=== PATIENT | female | born 1995 | race African-American/Black ===

== ENCOUNTER 2024-01-22 13:34 | Outpatient (AMB) | payer OTHER, SELFPAY ==
--- NOTE | 2024-01-22 13:40 | MHC.OFFVIS ---
Vital Signs 01/22/24 13:41 Height 5 ft 7 in Weight 149 lb BMI 23.3 BP 110/68 Intake Visit Reasons: New patient Annual Allergies penicilin Allergy (Mild, Uncoded 01/22/24 13:43) Hives Is last menstrual period known: Yes Last menstrual period: 01/14/24 HPI HPI New patient Annual: Details: Patient for a new church secretary exam. She has never been here before she recently moved from [facility] she is now living in [place] she does not have a primary care provider yet. She has been having a vaginal odor around the time of her. And a lingering watery bad smelling discharge that lasts for a long time afterwards this has been happening since August she was sexually active in the summer she had been on control pills last year but stopped April and she was using condoms when she was sexually active she is not currently sexually active now. She had COVID last year and it affected her taste buds so she finds meat unappealing and and it tastes rotten., and she has given up sugar and caffeine. Healthy things and veggies taste good to her. She works out. [facility] Medical History (Updated 01/22/24 @ 14:28 by Cheryl Baker CNM) Depression Anxiety Social History (Updated 01/22/24 @ 13:47 by Araceli Nation [facility]) Alcohol intake: never Patient Tobacco Use Status: Never used Tobacco Female Reproductive History Menstrual Age of Menarche: 9 Duration of menses: 3-5 days Date of last menstrual period: 01/14/24 control method: none Total pregnancies: 0 History of abnormal pap smear: No (2022 neg (per Patient)) Physical Exam Vital Signs: Last Vital Signs BP 110/68 01/22/24 13:41 BMI result Body Mass Index 23.3 Const General: healthy appearing, comfortable, no acute distress, well developed and alert Nutritional Appearance: average body habitus Orientation/consciousness: patient oriented x3 Limitations: no limitations HEENT Head: Yes normocephalic Neck Neck: Yes normal visual inspection Chest Chest palpation & inspection: normal inspection of the chest Breast/axilla inspection: normal inspection of the breasts and normal inspection of the axillae Breast/axilla palpation: normal palpation of the breasts and normal palpation of the axillae Resp Effort & Inspection: normal respiratory effort GI Inspection: Yes normal to inspection, No Abdominal wall edema and No distended Palpation (GI): Soft to palpation and nontender Other: No discharge appreciated until speculum placed chocolate the liquidy foul-smelling brown liquid discharge when speculum opened up foreign body noted in posterior part of vagina appears to be a tampon grasped with ring forceps and removed along with speculum,(too large to pass through open speculum,) Vagina and cervix swabbed with scoppetes. Friable cervix noted nulliparous Pap smear taken as well as cultures for gonorrhea chlamydia trichomoniasis Angelica and bacterial vaginosis will treat with metronidazole for 7 days. General: Yes bladder normal to palpation External Female Exam: normal external appearance and normal appearance of the urethra Speculum Exam - Vagina: normal appearance of the vagina, normal palpation and normal vaginal discharge Speculum Exam - Cervix: normal appearance of the cervix, normal palpation and nontender Bimanual exam- vagina & uterus: normal bimanual exam, normal palpation, uterine size normal, bladder normal to palpation, consistency normal, normal palpation, uterine mobility normal, uterine shape normal, No Cervical tenderness present, non-tender and no cervical motion tenderness Bimanual Exam- Adnexa, other: normal adnexae, no masses, normal and No adnexal tenderness Neuro General: patient oriented x3 Office Procedures AMB Foreign Body Removal Details: Please see the exam section for the description of the discharge and tampon when it was identified as a tampon it was grasped with ring forceps and removed along with the speculum as it was too large to pass through an open speculum. Speculum was then replaced to continue the exam and obtain specimens. Foreign Body Removal Simple: [id number], simple Procedure code (CPT) selection complete Assessment & Plan Assessment & Plan (1) Encounter for screening examination for sexually transmitted disease: Code(s): Z11.3 - Encounter for screening for infections with a predominantly sexual mode of transmission Category: Medical (2) Cervical cancer screening: Code(s): Z12.4 - Encounter for screening for malignant neoplasm of cervix Category: Medical (3) Vaginal odor: Code(s): N89.8 - Other specified noninflammatory disorders of vagina Category: Medical (4) Problematic vaginal discharge: Code(s): N89.8 - Other specified noninflammatory disorders of vagina Category: Medical (5) control counseling: Code(s): Z30.09 - Encounter for other general counseling and advice on contraception Category: Medical (6) Retained tampon: Code(s): T19.2XXA - Foreign body in vulva and vagina, initial encounter; W44.8XXA - Other foreign body entering into or through a natural orifice, initial encounter Category: Medical Plan -----Discussed in this visit the following: healthy balanced diet, regular and consistent exercise, getting recommended health screens, doing the best she can for her particular health concerns, kegel exercises, pap smear screening and followup recommendations, mammography screening and SBE, normal changes in cycles in her life stage--- Tampon was removed it appeared to be large it was fairly foul-smelling chocolate brown copious discharge.. Vagina was swabbed with scoppettes as noted I am sending prescription for metronidazole for her to take counseled on bad taste of metronidazole but in this case I think it is worth treating to kill any bacteria present. Additionally while I do not ever recommend douching in this case a vinegar and water cleansing douche would be recommended to has never done that so in her case I recommend just cleansing in the shower with plain water and also dilute water and vinegar on her finger to finger clean her vagina with 2 or 3 times sweeps in the shower. She is content to use condoms for control and does not want to go on anything else at this time and that is acceptable she is not sexually active at the moment. Testing ordered for HIV hep B hep C and syphilis and she can get that downstairs in the lab she is actively seeking a primary care provider . RTC 1 year or p.r.n. Orders: Orders Hepatitis C Antibody Today N89.8 - Other specified noninflammatory disorders of vagina, T19.2XXA - Foreign body in vulva and vagina, initial encounter, W44.8XXA - Other foreign body entering into or through a natural orifice, initial encounter, Z11.3 - Encounter for screening for infections with a predominantly sexual mode of transmission, Z12.4 - Encounter for screening for malignant neoplasm of cervix, Z30.09 - Encounter for other general counseling and advice on contraception HIV Ab/Ag Today N89.8 - Other specified noninflammatory disorders of vagina, T19.2XXA - Foreign body in vulva and vagina, initial encounter, W44.8XXA - Other foreign body entering into or through a natural orifice, initial encounter, Z11.3 - Encounter for screening for infections with a predominantly sexual mode of transmission, Z12.4 - Encounter for screening for malignant neoplasm of cervix, Z30.09 - Encounter for other general counseling and advice on contraception Syphilis Screen Today N89.8 - Other specified noninflammatory disorders of vagina, T19.2XXA - Foreign body in vulva and vagina, initial encounter, W44.8XXA - Other foreign body entering into or through a natural orifice, initial encounter, Z11.3 - Encounter for screening for infections with a predominantly sexual mode of transmission, Z12.4 - Encounter for screening for malignant neoplasm of cervix, Z30.09 - Encounter for other general counseling and advice on contraception Pap Smear Today Z01.419 - Encounter for gynecological examination (general) (routine) without abnormal findings CT NG by PCR Today N89.8 - Other specified noninflammatory disorders of vagina, Z20.2 - Contact with and (suspected) exposure to infections with a predominantly sexual mode of transmission Bacterial Vaginosis Panel Today N89.8 - Other specified noninflammatory disorders of vagina Hepatitis B Surface Antigen Today N89.8 - Other specified noninflammatory disorders of vagina, T19.2XXA - Foreign body in vulva and vagina, initial encounter, W44.8XXA - Other foreign body entering into or through a natural orifice, initial encounter, Z11.3 - Encounter for screening for infections with a predominantly sexual mode of transmission, Z12.4 - Encounter for screening for malignant neoplasm of cervix, Z30.09 - Encounter for other general counseling and advice on contraception AMB Removal of foreign body Today N89.8 - Other specified noninflammatory disorders of vagina, T19.2XXA - Foreign body in vulva and vagina, initial encounter, W44.8XXA - Other foreign body entering into or through a natural orifice, initial encounter Medications: New metronidazole 500 mg PO Q12H 14 tabs 0RF Coding Level of Care Code New Pt Prev Care 18-39yr([id number] Diagnoses Encounter for screening examination for sexually transmitted disease Z11.3 Cervical cancer screening Z12.4 Vaginal odor N89.8 Problematic vaginal discharge N89.8 control counseling Z30.09 Retained tampon T19.2XXA; W44.8XXA CPT Codes Details - Foreign body simple: [id number], simple ([id number])
[2024-01-22 13:41] VITALS: BP 110/68; BMI 23.3
== END 2024-01-22 15:09 | disposition home or self-care (01) ==
PROVIDERS: Visit Provider Advanced Practice Midwife
DX: Z01.419 Encounter for gynecological examination (general) (routine) without abnormal findings (principal); N89.8 Other specified noninflammatory disorders of vagina; Z30.09 Encounter for other general counseling and advice on contraception; T19.2XXA Foreign body in vulva and vagina, initial encounter; W44.8XXA Other foreign body entering into or through a natural orifice, initial encounter
CPT/HCPCS: 99385

== ENCOUNTER 2024-01-22 13:34 | Outpatient (REF) | payer OTHER, SELFPAY ==
[2024-01-25 10:26] LABS: HPV 16,18/45 See PAP report
== END 2024-01-22 13:35 | disposition home or self-care (01) ==
LOC: HO.LNP 13:34
PROVIDERS: Visit Provider Advanced Practice Midwife
DX: Z01.419 Encounter for gynecological examination (general) (routine) without abnormal findings (principal); Z11.51 Encounter for screening for human papillomavirus (HPV)
CPT/HCPCS: 87624; 88175

== ENCOUNTER 2024-01-22 14:26 | Outpatient (REF) | payer OTHER, SELFPAY ==
[2024-01-23 03:29] LABS: Syphilis Screen Nonreactive (Nonreactive)
[2024-01-23 03:48] LABS: HBsAGNum1 0.34 S/CO (0.00-0.99); HIV AB/AG Nonreactive (Nonreactive); HIV Num 1 0.07 S/CO (0.00-0.99); Hepatitis B Surface Antigen Negative (Negative); ~HepC Num1 0.08 S/CO (0.00-0.79); ~Hepatitis C Antibody Nonreactive (Nonreactive)
[2024-01-23 05:18] LABS: CT PCR NOT DETECTED (Not Detect.); NG PCR NOT DETECTED (Not Detect.)
[2024-01-23 13:17] LABS: Bacterial Vaginosis PCR POSITIVE (Negative); Candida Group PCR NOT DETECTED (Not Detect); Candida glab krusei PCR NOT DETECTED (Not Detect); Trichomonas vaginalis PCR NOT DETECTED (Not Detect)
== END 2024-01-22 14:27 | disposition home or self-care (01) ==
LOC: HO.LAB 14:26
PROVIDERS: Nurse Practitioner Family; Visit Provider Advanced Practice Midwife
DX: Z01.419 Encounter for gynecological examination (general) (routine) without abnormal findings (principal); Z20.2 Contact with and (suspected) exposure to infections with a predominantly sexual mode of transmission; N89.8 Other specified noninflammatory disorders of vagina; Z11.3 Encounter for screening for infections with a predominantly sexual mode of transmission; Z12.4 Encounter for screening for malignant neoplasm of cervix; Z30.09 Encounter for other general counseling and advice on contraception; T19.2XXA Foreign body in vulva and vagina, initial encounter; W44.8XXA Other foreign body entering into or through a natural orifice, initial encounter
CPT/HCPCS: 0352U; 86780; 86803; 87340; 87389; 87491; 87591

== ENCOUNTER 2024-01-22 14:31 | Outpatient (REF) | payer OTHER, SELFPAY | END 2024-01-22 14:32 | disposition home or self-care (01) | LOC: HO.HHCL 14:31 | PROVIDERS: Visit Provider Advanced Practice Midwife | DX: Z13.89 Encounter for screening for other disorder (principal) ==